=== PATIENT | male | born 1975 | race African-American/Black ===

== ENCOUNTER 2017-09-04 22:38 | Inpatient (IN) | payer BC, OTHER ==
[~2017-09-04] VITALS: Ht 182.9 cm; Wt 106.6 kg
[2017-09-04] MEDS ORDERED: ASPIRIN 81MG TABLET PO ONE (23:00)
[2017-09-04] MEDS ORDERED: NITROGLYCERIN OINT 1GM/INCH UDPKT TD ONE (23:00)
[2017-09-04] MEDS ORDERED: LABETALOL HCL 20MG/4ML CARPUJECT IV ONE (23:00)
[2017-09-04 23:27] LABS: BG BASE EXCESS 1.1 mmol/L (-2.0-2.0); BG CARBOXYHEMOGLOBIN 4.7 % (0.5-1.5); BG DEOXYHEMOGLOBIN 2.7 % (0.0-5.0); BG FRACTION INSPIRED OXYGEN 21; BG HCO3 ACT 25.2 mmol/L (22.0-26.0); BG METHEMOGLOBIN 0.3 % (0.0-1.5); BG OXYGEN SATURATION 97.2 % (92.0-98.5); BG OXYHEMOGLOBIN 92.3 % (94.0-97.0); BG PCO2 38.1 mmHg (35.0-45.0); BG PH 7.438 (7.350-7.450); BG PO2 95.7 mmHg (75.0-100.0); BG SAMPLE SITE LEFT RADIAL; BG TOTAL HEMOGLOBIN 13.8 g/dL (12.0-18.0); BG VENT MODE ROOM AIR
[2017-09-04] MEDS ORDERED: MORPHINE SULFATE 4 MG/ML CPJ (NOT FOR IM USE) IV ONE (23:30)
[2017-09-05] VITALS (9 sets, daily range): BP systolic 118–145; BP diastolic 63–95
[2017-09-05 00:15] LABS: BASOPHILS % 0.9 % (0.0-2.0); EOSINOPHILS % 1.7 % (0.0-5.0); HEMATOCRIT. 41.3 % (42.0-52.0); HEMOGLOBIN. 13.6 g/dL (14.0-18.0); LYMPHOCYTES % 17.7 % (20.0-50.0); MEAN CORPUSCULAR VOLUME 93.8 fL (80.0-94.0); MEAN PLATELET VOLUME 8.7 fl (7.4-10.4); MONOCYTES % 7.2 % (2.0-8.0); NEUTROPHILS % 72.5 % (40.0-76.0); PLATELET 223 x1000/uL (130-400)
[2017-09-05 00:20] LABS: CHLORIDE 103 mEq/L (98-107)
[2017-09-05 00:24] LABS: ETHANOL BLOOD < 10 mg/dL
[2017-09-05 00:33] LABS: INR 1.1; PROTHROMBIN TIME 11.6 sec (9.4-11.6)
[2017-09-05 00:40] LABS: D-DIMER 17.89 mg/L FEU (<0.50)
[2017-09-05] MEDS: SODIUM CHLORIDE 0.9% 1,000 ML IV NR ×2 (01:16→01:55)
[2017-09-05] MEDS ORDERED: LABETALOL 5MG/ML SYR 20 MG/4 ML SYRINGE IV NR (01:30)
[2017-09-05 02:19] LABS: CLARITY URINE CLEAR (CLEAR); COLOR URINE YELLOW (YELLOW); KETONES URINE TRACE (NEGATIVE); LEUKOCYTE ESTERASE URINE TRACE (NEGATIVE); NITRITE URINE NEGATIVE (NEGATIVE); OCCULT BLOOD URINE NEGATIVE (NEGATIVE); PH URINE 5.5 (4.5-8.0); PROTEIN URINE NEGATIVE (NEGATIVE); SPECIFIC GRAVITY URINE 1.028 (1.005-1.030)
[2017-09-05 02:33] LABS: *AMPHETAMINES SCREEN URINE NEGATIVE (NEGATIVE); *BARBITURATES SCREEN URINE NEGATIVE (NEGATIVE); *BENZODIAZEPINES SCREEN URINE PRESUMTIVE POSITIVE (NEGATIVE)
[2017-09-05 02:35] LABS: *COCAINE SCREEN URINE NEGATIVE (NEGATIVE); METHADONE URINE SCREEN NEGATIVE (NEGATIVE); OPIATES URINE SCREEN NEGATIVE (NEGATIVE); PHENCYCLIDINE URINE SCREEN NEGATIVE (NEGATIVE)
[2017-09-05 02:36] LABS: CANNABINOID URINE SCREEN NEGATIVE (NEGATIVE)
[2017-09-05] MEDS ORDERED: MORPHINE SULFATE 4 MG/ML CPJ (NOT FOR IM USE) IV NR (02:45)
[2017-09-05] MEDS ORDERED: IOHEXOL-350 100 ML BOTTLE ONE (04:42)
[2017-09-05] MEDS ORDERED: ENOXAPARIN 100MG/ML SYR SUBCUT NR (08:15)
[2017-09-05] MEDS ORDERED: ACETAMINOPHEN 650MG/20.3ML UDC GT PRN (08:15)
[2017-09-05] MEDS ORDERED: GUAIFENESIN 200MG/10ML SUGAR FREE UDC PO PRN (08:15)
[2017-09-05] MEDS ORDERED: CLONIDINE 0.1MG TABLET PO PRN (08:15)
[2017-09-05] MEDS ORDERED: HEPARIN 100 UNITS/1 ML VIAL IVF SCH (08:30)
[2017-09-05] MEDS ORDERED: HEPARIN 25,000 UNITS PREMIX 500 ML IV SCH (08:30)
[2017-09-05] MEDS ORDERED: MORPHINE SULFATE 4 MG/ML CPJ (NOT FOR IM USE) IV PRN (08:45)
[2017-09-05] MEDS ORDERED: HEPARIN 80 UNITS/KG BOLUS IV NR (09:00)
[2017-09-05] MEDS ORDERED: HEPARIN BOLUS PRN aPTT <36 IV (09:00)
[2017-09-05] MEDS ORDERED: IPRATROPIUM/ALBUTEROL 0.5-3(2.5)MG/3ML NEB HHN PRN (09:00)
[2017-09-05] MEDS: HEPARIN 25,000 UNITS PREMIX 500 ML IV SCH (09:19)
[2017-09-05] MEDS ORDERED: POTASSIUM CHLORIDE 10MEQ TABLET SR PO NR (11:15)
[2017-09-05] MEDS ORDERED: FUROSEMIDE 40MG/4ML VIAL IVP NR (11:15)
[2017-09-05] MEDS ORDERED: HYDROCODONE/ACETAMINOPHEN 5/325MG TABLET PO PRN (11:30)
[2017-09-05] MEDS: PANTOPRAZOLE SODIUM 40 MG/VIAL IV SCH ×2 (11:32→15:48)
[2017-09-05] MEDS: THIAMINE HCL 100MG TABLET PO SCH ×2 (11:32→15:49)
[2017-09-05] MEDS: MULTIVITAMINS,THER W-MINERALS TABLET PO SCH ×2 (11:33→15:48)
[2017-09-05] MEDS: HYDROCODONE/ACETAMINOPHEN 10/325MG TABLET PO PRN ×2 (11:52→19:56)
[2017-09-05] MEDS: HYDROMORPHONE HCL/PF 2MG/ML CPJ IV PRN ×2 (11:54→23:26)
[2017-09-05] MEDS ORDERED: GABA-531 PO (12:07)
[2017-09-05] MEDS ORDERED: CHLO5CAP3 PO (12:07)
[2017-09-05 14:03] LABS: CREATINE KINASE MB FRACTION < 0.5 ng/mL (0.5-3.6)
[2017-09-05] MEDS: MAGNESIUM/ALUMINUM HYDROXIDE/SIMETHICONE 30ML UDC PO PRN (15:47)
[2017-09-05] MEDS: DOCUSATE SODIUM 250MG CAPSULE PO SCH (15:48)
[2017-09-05] MEDS: FOLIC ACID 1MG TABLET PO SCH (15:49)
[2017-09-05] MEDS: NICOTINE 14MG PATCH TD SCH (15:50)
[2017-09-05] MEDS: SODIUM CHLORIDE 0.9% INJ 3ML FLUSH IVF SCH ×2 (15:52→22:32)
[2017-09-05] MEDS ORDERED: ENOXAPARIN 40MG/0.4ML SYR SUBCUT SCH (18:00)
[2017-09-06] VITALS (17 sets, daily range): BP systolic 110–159; BP diastolic 69–96
[2017-09-06 01:59] LABS: CREATINE KINASE MB FRACTION 0.9 ng/mL (0.5-3.6)
[2017-09-06] MEDS: HEPARIN 25,000 UNITS PREMIX 500 ML IV SCH (01:59)
[2017-09-06] MEDS: IPRATROPIUM/ALBUTEROL 0.5-3(2.5)MG/3ML NEB HHN SCH ×5 (03:55→20:22)
[2017-09-06] MEDS: HYDROMORPHONE HCL/PF 2MG/ML CPJ IV PRN ×2 (04:04→22:24)
[2017-09-06] MEDS: SODIUM CHLORIDE 0.9% INJ 3ML FLUSH IVF SCH ×3 (05:53→22:18)
[2017-09-06 06:33] LABS: BASOPHILS % 0.5 % (0.0-2.0); EOSINOPHILS % 1.5 % (0.0-5.0); HEMATOCRIT. 36.6 % (42.0-52.0); HEMOGLOBIN. 12.2 g/dL (14.0-18.0); LYMPHOCYTES % 19.4 % (20.0-50.0); MEAN CORPUSCULAR HEMOGLOBIN 31.4 pg (28.0-32.0); MEAN CORPUSCULAR VOLUME 93.9 fL (80.0-94.0); MEAN PLATELET VOLUME 8.9 fl (7.4-10.4); MONOCYTES % 9.6 % (2.0-8.0); PLATELET 219 x1000/uL (130-400); RED CELL DISTRIBUTION WIDTH 13.6 % (11.6-14.6)
[2017-09-06 07:05] LABS: CHLORIDE 103 mEq/L (98-107)
[2017-09-06 07:42] LABS: BG BASE EXCESS 2.8 mmol/L (-2.0-2.0); BG CARBOXYHEMOGLOBIN 1.2 % (0.5-1.5); BG DEOXYHEMOGLOBIN 5.5 % (0.0-5.0); BG FRACTION INSPIRED OXYGEN 21; BG HCO3 ACT 27.6 mmol/L (22.0-26.0); BG METHEMOGLOBIN 0.3 % (0.0-1.5); BG OXYGEN SATURATION 94.4 % (92.0-98.5); BG PCO2 43.5 mmHg (35.0-45.0); BG PH 7.421 (7.350-7.450); BG PO2 72.6 mmHg (75.0-100.0); BG SAMPLE SITE RIGHT RADIAL; BG TOTAL HEMOGLOBIN 12.7 g/dL (12.0-18.0); BG VENT MODE ROOM AIR
[2017-09-06] MEDS ORDERED: CEFAZOLIN 1000MG PREMIX 50 ML IV ONE ×2 (07:45→08:46)
[2017-09-06] MEDS ORDERED: SODIUM BICARBONATE 4% (2.4MEQ) 5ML VIAL IV ONE (08:12)
[2017-09-06] MEDS ORDERED: LIDOCAINE HCL/PF 1% 10 MG/ML 5ML VIAL ONE (08:12)
[2017-09-06] MEDS ORDERED: IOHEXOL-300 100 ML BOTTLE ONE (08:13)
[2017-09-06] MEDS: FOLIC ACID 1MG TABLET PO SCH (11:18)
[2017-09-06] MEDS: NICOTINE 14MG PATCH TD SCH (11:18)
[2017-09-06] MEDS: MULTIVITAMINS,THER W-MINERALS TABLET PO SCH (11:18)
[2017-09-06] MEDS: PANTOPRAZOLE SODIUM 40 MG/VIAL IV SCH (11:18)
[2017-09-06] MEDS: MAGNESIUM/ALUMINUM HYDROXIDE/SIMETHICONE 30ML UDC PO PRN (11:18)
[2017-09-06] MEDS: CHLORDIAZEPOXIDE 25MG CAPSULE PO SCH ×2 (11:19→22:17)
[2017-09-06] MEDS: THIAMINE HCL 100MG TABLET PO SCH (11:19)
[2017-09-06] MEDS: DOCUSATE SODIUM 250MG CAPSULE PO SCH (11:19)
[2017-09-06] MEDS: AMLODIPINE 5MG TABLET PO SCH ×2 (14:11→22:17)
[2017-09-06] MEDS: HEPARIN BOLUS PRN aPTT 37-44 IV (16:17)
[2017-09-07] VITALS (15 sets, daily range): BP systolic 105–143; BP diastolic 68–98
[2017-09-07] MEDS: IPRATROPIUM/ALBUTEROL 0.5-3(2.5)MG/3ML NEB HHN SCH ×6 (00:08→20:17)
[2017-09-07] MEDS: HYDROCODONE/ACETAMINOPHEN 10/325MG TABLET PO PRN ×4 (00:40→22:22)
[2017-09-07] MEDS: SODIUM CHLORIDE 0.9% INJ 3ML FLUSH IVF SCH ×3 (06:47→22:00)
[2017-09-07 07:23] LABS: BASOPHILS % 0.4 % (0.0-2.0); HEMATOCRIT. 35.9 % (42.0-52.0); LYMPHOCYTES % 23.1 % (20.0-50.0); MEAN CORPUSCULAR HEMOGLOBIN 31.3 pg (28.0-32.0); MEAN CORPUSCULAR VOLUME 93.5 fL (80.0-94.0); MEAN PLATELET VOLUME 8.6 fl (7.4-10.4); MONOCYTES % 9.5 % (2.0-8.0); PLATELET 231 x1000/uL (130-400); RED BLOOD CELL COUNT 3.84 mill/uL (4.7-6.1); RED CELL DISTRIBUTION WIDTH 13.8 % (11.6-14.6)
[2017-09-07] MEDS: FAMOTIDINE 20MG TABLET PO SCH ×2 (08:27→22:06)
[2017-09-07] MEDS: DOCUSATE SODIUM 250MG CAPSULE PO SCH (08:27)
[2017-09-07] MEDS: CHLORDIAZEPOXIDE 25MG CAPSULE PO SCH ×2 (08:27→22:06)
[2017-09-07] MEDS: FOLIC ACID 1MG TABLET PO SCH (08:28)
[2017-09-07] MEDS: NICOTINE 14MG PATCH TD SCH (08:28)
[2017-09-07] MEDS: AMLODIPINE 5MG TABLET PO SCH ×2 (08:28→22:07)
[2017-09-07] MEDS: HEPARIN 25,000 UNITS PREMIX 500 ML IV SCH ×4 (10:03→18:44)
[2017-09-07] MEDS: BUDESONIDE 0.5MG/2ML NEB HHN SCH ×2 (12:19→20:18)
[2017-09-07] MEDS: HEPARIN BOLUS PRN aPTT 37-44 IV ×2 (18:17→18:42)
[2017-09-08] VITALS (15 sets, daily range): BP systolic 108–143; BP diastolic 64–95
[2017-09-08] MEDS: IPRATROPIUM/ALBUTEROL 0.5-3(2.5)MG/3ML NEB HHN SCH ×6 (00:08→20:17)
[2017-09-08] MEDS: HEPARIN 25,000 UNITS PREMIX 500 ML IV SCH ×2 (04:29→17:25)
[2017-09-08] MEDS: SODIUM CHLORIDE 0.9% INJ 3ML FLUSH IVF SCH ×3 (05:35→21:45)
[2017-09-08] MEDS: BUDESONIDE 0.5MG/2ML NEB HHN SCH ×2 (08:12→20:17)
[2017-09-08] MEDS: NICOTINE 14MG PATCH TD SCH (08:59)
[2017-09-08] MEDS: MULTIVITAMINS,THER W-MINERALS TABLET PO SCH (08:59)
[2017-09-08] MEDS: CHLORDIAZEPOXIDE 25MG CAPSULE PO SCH ×2 (09:00→21:44)
[2017-09-08] MEDS: DOCUSATE SODIUM 250MG CAPSULE PO SCH (09:00)
[2017-09-08] MEDS: AMLODIPINE 5MG TABLET PO SCH ×2 (09:00→21:44)
[2017-09-08] MEDS: THIAMINE HCL 100MG TABLET PO SCH (09:00)
[2017-09-08] MEDS: FOLIC ACID 1MG TABLET PO SCH (09:00)
[2017-09-08] MEDS: FAMOTIDINE 20MG TABLET PO SCH ×2 (09:00→21:44)
[2017-09-08 09:49] LABS: BASOPHILS % 0.4 % (0.0-2.0); EOSINOPHILS % 2.9 % (0.0-5.0); HEMATOCRIT. 37.9 % (42.0-52.0); HEMOGLOBIN. 12.7 g/dL (14.0-18.0); LYMPHOCYTES % 17.8 % (20.0-50.0); MEAN CORPUSCULAR HEMOGLOBIN 31.5 pg (28.0-32.0); MEAN CORPUSCULAR VOLUME 94.1 fL (80.0-94.0); MEAN PLATELET VOLUME 8.5 fl (7.4-10.4); MONOCYTES % 7.1 % (2.0-8.0); NEUTROPHILS % 71.8 % (40.0-76.0); PLATELET 248 x1000/uL (130-400); RED BLOOD CELL COUNT 4.03 mill/uL (4.7-6.1); RED CELL DISTRIBUTION WIDTH 13.6 % (11.6-14.6)
[2017-09-08] MEDS: HYDROMORPHONE HCL/PF 2MG/ML CPJ IV PRN (21:46)
[2017-09-09] VITALS: BP 140/98
[2017-09-09] MEDS: IPRATROPIUM/ALBUTEROL 0.5-3(2.5)MG/3ML NEB HHN SCH ×3 (01:51→12:45)
[2017-09-09 05:53] LABS: BASOPHILS % 0.5 % (0.0-2.0); EOSINOPHILS % 2.5 % (0.0-5.0); HEMATOCRIT. 37.9 % (42.0-52.0); HEMOGLOBIN. 12.7 g/dL (14.0-18.0); LYMPHOCYTES % 23.3 % (20.0-50.0); MEAN CORPUSCULAR HEMOGLOBIN 31.4 pg (28.0-32.0); MEAN CORPUSCULAR VOLUME 93.7 fL (80.0-94.0); MEAN PLATELET VOLUME 9.1 fl (7.4-10.4); MONOCYTES % 7.7 % (2.0-8.0); PLATELET 261 x1000/uL (130-400); RED BLOOD CELL COUNT 4.05 mill/uL (4.7-6.1); RED CELL DISTRIBUTION WIDTH 13.7 % (11.6-14.6)
[2017-09-09 06:00] VITALS: BP 116/78
[2017-09-09] MEDS: HEPARIN 25,000 UNITS PREMIX 500 ML IV SCH (06:19)
[2017-09-09 08:00] VITALS: BP 117/78
[2017-09-09] MEDS: BUDESONIDE 0.5MG/2ML NEB HHN SCH (08:10)
[2017-09-09] MEDS: THIAMINE HCL 100MG TABLET PO SCH (08:38)
[2017-09-09] MEDS: DOCUSATE SODIUM 250MG CAPSULE PO SCH (08:38)
[2017-09-09] MEDS: MULTIVITAMINS,THER W-MINERALS TABLET PO SCH (08:38)
[2017-09-09] MEDS: FOLIC ACID 1MG TABLET PO SCH (08:38)
[2017-09-09] MEDS: CHLORDIAZEPOXIDE 25MG CAPSULE PO SCH (08:39)
[2017-09-09] MEDS: FAMOTIDINE 20MG TABLET PO SCH (08:39)
[2017-09-09] MEDS: AMLODIPINE 5MG TABLET PO SCH (08:39)
[2017-09-09] MEDS: NICOTINE 14MG PATCH TD SCH (08:40)
[2017-09-09 09:33] VITALS: BP 119/80
[2017-09-09 11:57] VITALS: BP 121/79
[2017-09-09 12:00] VITALS: BP 121/79
[2017-09-09] MEDS ORDERED: LOV40 SQ (12:17)
[2017-09-10 11:28] LABS: ANTI-CARDIOLIPIN AB IGG < 9 GPL U/mL (0-14); ANTI-CARDIOLIPIN AB IGM < 9 MPL U/mL (0-12)
[2017-09-11 10:07] LABS: ANTI-DNA DOUBLE STRANDED QUANT 1 IU/mL (0-9)
== END 2017-09-09 14:15 | disposition home or self-care (01) | DRG 166 ==
LOC: ER 22:38 → 5EST 09-05 00:07 → EDBEDREQ 09-05 00:08 → CANRESERV 09-05 07:56 → ENRESERV 09-05 07:56 → EDBEDREQSVC 09-05 08:15 → ENRESERV 09-05 08:16
PROVIDERS: ADMIT Internal Medicine Geriatric Medicine; ATTEND Internal Medicine Geriatric Medicine
PROC: 06H03DZ Insertion of Intraluminal Device into Inferior Vena Cava, Percutaneous Approach (ICD-10-PCS; principal; 2017-09-05)
PROC: B5191ZZ Fluoroscopy of Inferior Vena Cava using Low Osmolar Contrast (ICD-10-PCS; 2017-09-05)
PROC: B549ZZA Ultrasonography of Inferior Vena Cava, Guidance (ICD-10-PCS; 2017-09-05)
DX: I26.99 Other pulmonary embolism without acute cor pulmonale (principal); J96.00 Acute respiratory failure, unspecified whether with hypoxia or hypercapnia; I82.431 Acute embolism and thrombosis of right popliteal vein; E44.1 Mild protein-calorie malnutrition; D68.59 Other primary thrombophilia; I50.810 Right heart failure, unspecified; I27.21 Secondary pulmonary arterial hypertension; R60.0 Localized edema; K70.9 Alcoholic liver disease, unspecified; D53.9 Nutritional anemia, unspecified; G62.9 Polyneuropathy, unspecified; E66.9 Obesity, unspecified; E78.5 Hyperlipidemia, unspecified; F17.210 Nicotine dependence, cigarettes, uncomplicated; I10 Essential (primary) hypertension; J44.9 Chronic obstructive pulmonary disease, unspecified; Z79.01 Long term (current) use of anticoagulants; Z79.899 Other long term (current) drug therapy; Z82.49 Family history of ischemic heart disease and other diseases of the circulatory system; Z86.718 Personal history of other venous thrombosis and embolism; Z91.14 Patient's other noncompliance with medication regimen; Z86.711 Personal history of pulmonary embolism; R74.0 Nonspecific elevation of levels of transaminase and lactic acid dehydrogenase [LDH]; Z68.35 Body mass index [BMI] 35.0-35.9, adult
CPT/HCPCS: 36415; 36600; 37191; 71045; 71275; 78582; 80053; 80305; 81003; 82375; 82553; 82805; 83690; 83735; 83880; 84484; 85025; 85379; 85610; 85730; 86147; 86225; 93005; 93306; 93970; 94640; 96361; 96374; 96375; 96376; 97162; 99291; A9558; C1769; C1880; C9113; G0482; J0690; J1170; J1644; J1940; J2270; J3490; J7030; J7620; J7626; Q9967

== ENCOUNTER 2017-10-14 17:48 | Inpatient (IN) | payer BC ==
[~2017-10-14] VITALS: Ht 182.9 cm; Wt 102.1 kg
[~2017-10-14 17:48] MED LIST: GABA-531 PO
[2017-10-14] MEDS ORDERED: DOCUSATE SODIUM 100MG CAPSULE PO PRN (19:30)
[2017-10-14] MEDS ORDERED: DIPHENHYDRAMINE 50MG/ML VIAL IV PRN (19:30)
[2017-10-14] MEDS ORDERED: MAGNESIUM/ALUMINUM HYDROXIDE/SIMETHICONE 30ML UDC PO PRN (19:30)
[2017-10-14] MEDS ORDERED: GUAIFENESIN 200MG/10ML SUGAR FREE UDC PO PRN (19:30)
[2017-10-14] MEDS ORDERED: LORAZEPAM 0.5MG TABLET PO PRN (19:30)
[2017-10-14] MEDS ORDERED: ACETAMINOPHEN 325MG TABLET PO PRN (19:30)
[2017-10-14] MEDS ORDERED: ONDANSETRON 4MG ODT PO PRN (19:30)
[2017-10-14 20:23] LABS: BASOPHILS % 0.6 % (0.0-2.0); EOSINOPHILS % 1.4 % (0.0-5.0); HEMATOCRIT. 38.4 % (42.0-52.0); HEMOGLOBIN. 12.7 g/dL (14.0-18.0); LYMPHOCYTES % 15.5 % (20.0-50.0); MEAN CORPUSCULAR HEMOGLOBIN 32.2 pg (28.0-32.0); MEAN PLATELET VOLUME 9.4 fl (7.4-10.4); MONOCYTES % 6.1 % (2.0-8.0); NEUTROPHILS % 76.4 % (40.0-76.0); PLATELET 127 x1000/uL (130-400); RED BLOOD CELL COUNT 3.96 mill/uL (4.7-6.1)
[2017-10-14 20:25] LABS: CHLORIDE 102 mEq/L (98-107)
[2017-10-14 20:28] LABS: INR 1.1; PARTIAL THROMBOPLASTIN TIME 27.5 sec (23.4-31.0); PROTHROMBIN TIME 11.4 sec (9.4-11.6)
[2017-10-14 20:33] LABS: CREATINE KINASE 79 IU/L (39-308)
[2017-10-14 22:05] LABS: CLARITY URINE CLEAR (CLEAR); COLOR URINE DARK YELLOW (YELLOW); KETONES URINE TRACE (NEGATIVE); LEUKOCYTE ESTERASE URINE TRACE (NEGATIVE); NITRITE URINE NEGATIVE (NEGATIVE); OCCULT BLOOD URINE NEGATIVE (NEGATIVE); PH URINE 5.5 (4.5-8.0); PROTEIN URINE TRACE (NEGATIVE); SPECIFIC GRAVITY URINE 1.027 (1.005-1.030)
[2017-10-14 22:06] LABS: HEPATITIS B SURFACE ANTIGEN NEGATIVE
[2017-10-14] MEDS ORDERED: ENOXAPARIN 100MG/ML SYR SUBCUT ONE (22:15)
[2017-10-14 22:18] LABS: *AMPHETAMINES SCREEN URINE NEGATIVE (NEGATIVE); *BARBITURATES SCREEN URINE NEGATIVE (NEGATIVE); *BENZODIAZEPINES SCREEN URINE PRESUMTIVE POSITIVE (NEGATIVE); *COCAINE SCREEN URINE NEGATIVE (NEGATIVE)
[2017-10-14 22:20] LABS: CANNABINOID URINE SCREEN NEGATIVE (NEGATIVE); METHADONE URINE SCREEN NEGATIVE (NEGATIVE); OPIATES URINE SCREEN NEGATIVE (NEGATIVE)
[2017-10-14 22:22] LABS: PHENCYCLIDINE URINE SCREEN NEGATIVE (NEGATIVE)
[2017-10-14] MEDS: HYDROCODONE/ACETAMINOPHEN 5/325MG TABLET PO PRN (22:23)
[2017-10-14] MEDS ORDERED: FOLIC ACID 1 MG, THIAMINE HCL 100 MG, MVI, ADULT NO.1 10 ML in DEXTROSE 5% WATER 1,000 ML IV NR ×4 (22:30)
[2017-10-14 22:34] LABS: HEPATITIS B CORE AB IGM NEGATIVE
[2017-10-14 22:36] LABS: HEPATITIS A AB IGM NEGATIVE (NEGATIVE)
[2017-10-15] MEDS ORDERED: RIVA10TA MT (00:30)
[2017-10-15 00:44] VITALS: BP 123/87
[2017-10-15 04:00] VITALS: BP 121/81
[2017-10-15] MEDS: CEFTRIAXONE 1 G PREMIX 50 ML IV SCH (04:37)
[2017-10-15 06:08] LABS: BASOPHILS % 0.5 % (0.0-2.0); EOSINOPHILS % 3.3 % (0.0-5.0); HEMOGLOBIN. 11.7 g/dL (14.0-18.0); LYMPHOCYTES % 27.3 % (20.0-50.0); MEAN CORPUSCULAR HEMOGLOBIN 32.4 pg (28.0-32.0); MEAN CORPUSCULAR VOLUME 96.6 fL (80.0-94.0); MEAN PLATELET VOLUME 9.2 fl (7.4-10.4); MONOCYTES % 7.6 % (2.0-8.0); NEUTROPHILS % 61.3 % (40.0-76.0); PLATELET 118 x1000/uL (130-400); RED BLOOD CELL COUNT 3.63 mill/uL (4.7-6.1); RED CELL DISTRIBUTION WIDTH 15.7 % (11.6-14.6)
[2017-10-15 06:26] LABS: CHLORIDE 100 mEq/L (98-107)
[2017-10-15 06:34] LABS: ETHANOL BLOOD < 10 mg/dL
[2017-10-15 06:43] LABS: CREATINE KINASE MB FRACTION < 0.5 ng/mL (0.5-3.6)
[2017-10-15 08:00] VITALS: BP 113/80
[2017-10-15] MEDS ORDERED: CEFTRIAXONE 1 G PREMIX 50 ML IV SCH (09:00)
[2017-10-15] MEDS: APIXABAN 5 MG TABLET PO SCH ×2 (10:43→16:26)
[2017-10-15] MEDS: DOCUSATE SODIUM 250MG CAPSULE PO SCH (10:47)
[2017-10-15 12:00] VITALS: BP 116/80
[2017-10-15] MEDS: HYDROCODONE/ACETAMINOPHEN 5/325MG TABLET PO PRN ×2 (15:23→21:26)
[2017-10-15 15:39] VITALS: BP 122/83
[2017-10-15] MEDS: THIAMINE HCL 100MG TABLET PO SCH (16:26)
[2017-10-15] MEDS: MULTIVITAMINS,THER W-MINERALS TABLET PO SCH (16:26)
[2017-10-15] MEDS: FOLIC ACID 1MG TABLET PO SCH (16:26)
[2017-10-15 17:44] LABS: T4 FREE 0.98 ng/dL (0.76-1.46)
[2017-10-15 17:57] LABS: FOLIC ACID (FOLATE) SERUM >20 ng/mL ng/mL (>5.38)
[2017-10-15 18:08] LABS: VITAMIN B12 SERUM 1642 pg/mL (211-911)
[2017-10-15 20:00] VITALS: BP 115/60
[2017-10-15] MEDS: PREGABALIN 50 MG CAPSULE PO SCH (21:00)
[2017-10-16] VITALS: BP 125/68
[2017-10-16] MEDS: CEFTRIAXONE 1 G PREMIX 50 ML IV SCH (04:45)
[2017-10-16] MEDS: DOCUSATE SODIUM 250MG CAPSULE PO SCH (08:47)
[2017-10-16] MEDS: THIAMINE HCL 100MG TABLET PO SCH (08:47)
[2017-10-16] MEDS: APIXABAN 5 MG TABLET PO SCH ×2 (08:48→17:45)
[2017-10-16] MEDS: PREGABALIN 50 MG CAPSULE PO SCH ×2 (08:48→20:09)
[2017-10-16] MEDS: MULTIVITAMINS,THER W-MINERALS TABLET PO SCH (08:48)
[2017-10-16] MEDS: FOLIC ACID 1MG TABLET PO SCH (08:52)
[2017-10-16] MEDS: HYDROCODONE/ACETAMINOPHEN 5/325MG TABLET PO PRN ×3 (08:52→20:13)
[2017-10-16 08:56] VITALS: BP 121/82
[2017-10-16 09:58] LABS: BASOPHILS % 0.6 % (0.0-2.0); EOSINOPHILS % 2.4 % (0.0-5.0); HEMATOCRIT. 35.3 % (42.0-52.0); LYMPHOCYTES % 18.3 % (20.0-50.0); MEAN CORPUSCULAR HEMOGLOBIN 32.3 pg (28.0-32.0); MEAN CORPUSCULAR VOLUME 95.4 fL (80.0-94.0); MEAN PLATELET VOLUME 9.4 fl (7.4-10.4); NEUTROPHILS % 70.7 % (40.0-76.0); PLATELET 138 x1000/uL (130-400); RED CELL DISTRIBUTION WIDTH 15.8 % (11.6-14.6)
[2017-10-16 10:08] LABS: CHLORIDE 102 mEq/L (98-107)
[2017-10-16 12:00] VITALS: BP 108/75
[2017-10-16 16:00] VITALS: BP 128/84
[2017-10-16 20:00] VITALS: BP 122/84
[2017-10-17] VITALS: BP 128/85
[2017-10-17] MEDS: HYDROCODONE/ACETAMINOPHEN 5/325MG TABLET PO PRN ×3 (00:25→09:46)
[2017-10-17 04:00] VITALS: BP 126/76
[2017-10-17] MEDS: CEFTRIAXONE 1 G PREMIX 50 ML IV SCH (04:03)
[2017-10-17 07:12] LABS: BASOPHILS % 0.6 % (0.0-2.0); EOSINOPHILS % 2.5 % (0.0-5.0); HEMATOCRIT. 35.9 % (42.0-52.0); LYMPHOCYTES % 21.7 % (20.0-50.0); MEAN CORPUSCULAR HEMOGLOBIN 32.2 pg (28.0-32.0); MEAN CORPUSCULAR VOLUME 96.3 fL (80.0-94.0); MEAN PLATELET VOLUME 9.4 fl (7.4-10.4); MONOCYTES % 8.1 % (2.0-8.0); NEUTROPHILS % 67.1 % (40.0-76.0); PLATELET 145 x1000/uL (130-400); RED BLOOD CELL COUNT 3.72 mill/uL (4.7-6.1); RED CELL DISTRIBUTION WIDTH 15.6 % (11.6-14.6)
[2017-10-17 07:20] LABS: CHLORIDE 102 mEq/L (98-107)
[2017-10-17] MEDS ORDERED: PREGABALIN 75MG CAPSULE PO SCH (09:00)
[2017-10-17] MEDS: APIXABAN 5 MG TABLET PO SCH (09:29)
[2017-10-17] MEDS: FOLIC ACID 1MG TABLET PO SCH (09:29)
[2017-10-17] MEDS: DOCUSATE SODIUM 250MG CAPSULE PO SCH (09:29)
[2017-10-17] MEDS: MULTIVITAMINS,THER W-MINERALS TABLET PO SCH (09:29)
[2017-10-17] MEDS: THIAMINE HCL 100MG TABLET PO SCH (09:29)
[2017-10-17 15:05] VITALS: BP 115/73
== END 2017-10-17 15:30 | disposition home or self-care (01) | DRG 552 ==
LOC: ER 19:09 → 6EST 22:30 → ENRESERV 23:11
PROVIDERS: ADMIT Internal Medicine Geriatric Medicine; ATTEND Internal Medicine Geriatric Medicine
DX: M48.061 Spinal stenosis, lumbar region without neurogenic claudication (principal); I82.431 Acute embolism and thrombosis of right popliteal vein; I82.412 Acute embolism and thrombosis of left femoral vein; M48.02 Spinal stenosis, cervical region; M79.1 Myalgia; D69.6 Thrombocytopenia, unspecified; D64.9 Anemia, unspecified; E78.00 Pure hypercholesterolemia, unspecified; F10.20 Alcohol dependence, uncomplicated; G83.14 Monoplegia of lower limb affecting left nondominant side; G83.11 Monoplegia of lower limb affecting right dominant side; R20.2 Paresthesia of skin; F17.210 Nicotine dependence, cigarettes, uncomplicated; G62.9 Polyneuropathy, unspecified; I10 Essential (primary) hypertension; I27.20 Pulmonary hypertension, unspecified; K59.00 Constipation, unspecified; Z79.01 Long term (current) use of anticoagulants; Z79.899 Other long term (current) drug therapy; Z91.14 Patient's other noncompliance with medication regimen; Z86.711 Personal history of pulmonary embolism
CPT/HCPCS: 36415; 70551; 71045; 72131; 72141; 72146; 72148; 76700; 80048; 80053; 80305; 81003; 82550; 82553; 82607; 82746; 83036; 84439; 84443; 84481; 85025; 85610; 85651; 85730; 86038; 86705; 86709; 86803; 87040; 87086; 87340; 93005; 93923; 93970; 96372; 97162; 97166; 97530; 99285; G0482; J0696; J1650; J3411; J3490; J7040; J7070

== ENCOUNTER 2018-03-16 21:50 | Emergency (ER) | payer BC, OTHER ==
[~2018-03-16] VITALS: Ht 182.9 cm; Wt 90.0 kg
[~2018-03-16 21:50] MED LIST changes: -GABA-531 PO; +RIVA10TA MT
[2018-03-16] MEDS ORDERED: SODIUM CHLORIDE 0.9% 1,000 ML IV ONE (22:59)
[2018-03-16] MEDS ORDERED: HALOPERIDOL LACTATE 5MG/ML VIAL IM ONE (23:15)
[2018-03-16] MEDS ORDERED: LORAZEPAM 2MG/ML CPJ IM ONE (23:15)
[2018-03-17 00:07] LABS: BASOPHILS % 0.5 % (0.0-2.0); EOSINOPHILS % 0.6 % (0.0-5.0); HEMOGLOBIN. 15.2 g/dL (14.0-18.0); LYMPHOCYTES % 37.4 % (20.0-50.0); MEAN CORPUSCULAR HEMOGLOBIN 32.3 pg (28.0-32.0); MEAN CORPUSCULAR VOLUME 95.7 fL (80.0-94.0); MEAN PLATELET VOLUME 8.2 fl (7.4-10.4); MONOCYTES % 4.6 % (2.0-8.0); NEUTROPHILS % 56.9 % (40.0-76.0); PLATELET 282 x1000/uL (130-400); RED CELL DISTRIBUTION WIDTH 15.7 % (11.6-14.6)
[2018-03-17 00:14] LABS: CHLORIDE 106 mEq/L (98-107)
[2018-03-17 00:33] LABS: ETHANOL BLOOD 402 mg/dL
[2018-03-17 04:00] VITALS: BP 121/58
== END 2018-03-17 04:15 | disposition home or self-care (01) ==
LOC: ER 21:50
DX: Z04.1 Encounter for examination and observation following transport accident (principal); F10.129 Alcohol abuse with intoxication, unspecified; Y90.8 Blood alcohol level of 240 mg/100 ml or more; R45.1 Restlessness and agitation; F91.8 Other conduct disorders; Z48.02 Encounter for removal of sutures; R03.0 Elevated blood-pressure reading, without diagnosis of hypertension; E78.00 Pure hypercholesterolemia, unspecified; Z79.01 Long term (current) use of anticoagulants
CPT/HCPCS: 36415; 70450; 80053; 82962; 85025; 99284; G0482; J7030